=== PATIENT | male | born 1970 ===

== ENCOUNTER 2021-04-27 15:54 | Emergency (ER) | payer OTHER ==
[~2021-04-27] VITALS: Ht 170.2 cm; Wt 64.1 kg
[2021-04-27 17:22] LABS: INR 1.14 (0.9-1.15); Partial Thromboplastin Time 25.8 sec (23.6-33.0)
[2021-04-27 20:05] VITALS: BP 160/94
== END 2021-04-27 20:58 | disposition home or self-care (01) ==
LOC: EEVIPCON 15:54 → ER 15:54
DX: M79.605 Pain in left leg (principal); R22.42 Localized swelling, mass and lump, left lower limb; J45.909 Unspecified asthma, uncomplicated; I10 Essential (primary) hypertension; E78.5 Hyperlipidemia, unspecified; Z88.8 Allergy status to other drugs, medicaments and biological substances
CPT/HCPCS: 36415; 85610; 85730; 93971

== ENCOUNTER → 2021-10-20 | Outpatient (CLI) | payer OTHER ==
[~2021-10-20] MED LIST: IOHEXOL 300 MG/ML 100ML BOTTLE IJ ONE
[2021-10-20 09:51] LABS: BUN/Creatinine Ratio 16.9; Calcium 8.6 mg/dL (8.5-10.1); Potassium 4.6 mmol/L (3.5-5.1)
== END | disposition home or self-care (01) ==
LOC: XYW 08:34
DX: C85.91 Non-Hodgkin lymphoma, unspecified, lymph nodes of head, face, and neck (principal); J43.9 Emphysema, unspecified; J32.8 Other chronic sinusitis; K12.30 Oral mucositis (ulcerative), unspecified; M47.819 Spondylosis without myelopathy or radiculopathy, site unspecified; M48.8X2 Other specified spondylopathies, cervical region
CPT/HCPCS: 36415; 70491; 71260; 74177; 80048; Q9967